=== PATIENT | male | born 1965 | race Caucasian/White ===

== ENCOUNTER 2021-09-16 05:15 | Day surgery (SDC) | payer BC ==
[~2021-09-16] VITALS: Ht 177.8 cm; Wt 93.2 kg
[~2021-09-16 05:15] MED LIST: ASPIRIN E.C. 8181 MG PO; PRINIVIL20 MG PO; TOPROL XL 25MG25 MG PO
[2021-09-16] MEDS ORDERED: HYZAAR 25 MG-101 TAB PO (07:45)
[2021-09-16 08:55] VITALS: BP 113/71; PULSE 77
--- NOTE | 2021-09-16 08:55 | NUR ---
Patient returns to room 8 per cart from surgery accompanied by Roxana GERONIMO and Saroj Salmeron CRNA and patient arouses to verbal stimuli. IV fluids infusing and site is free of redness. Call light in reach and siderails up x2. Given water to sip on and allowed to rest. Exofin skin glue on upper back with wound edges well approximated and no drainage noted.
[2021-09-16] MEDS ORDERED: NORCO 325 MG-51 TAB PO (09:06)
[2021-09-16] MEDS ORDERED: MOTRIN 600600 MG/TAB PO (09:06)
[2021-09-16 09:10] VITALS: BP 116/76; PULSE 68
--- NOTE | 2021-09-16 09:10 | NUR ---
Resting when not disturbed and allowed to rest. Has tolerated water.
[2021-09-16 09:25] VITALS: BP 114/76; PULSE 67
--- NOTE | 2021-09-16 09:25 | NUR ---
Drinking orange juice. Denies pain or nausea.
[2021-09-16 09:40] VITALS: BP 117/71; PULSE 69
--- NOTE | 2021-09-16 09:40 | NUR ---
Continues to rest offers no complaints or pain or nausea.
--- NOTE | 2021-09-16 09:50 | NUR ---
IV to INT. Patient sitting up on the edge of bed. Scrub removed from the back that was used in the operating room for prep. Wound edges well approximated. No drainage noted.
--- NOTE | 2021-09-16 10:23 | NUR ---
Medicated with Motrin and Tylenol in preparation for discharge. Patient states that he will be taking an Uber home. Scripts were sent to [facility] and they will be delivered to the patients home. Patient is aware of this.
--- NOTE | 2021-09-16 10:30 | NUR ---
IV discontinued and site is free of redness or swelling. Patient is dressed.
--- NOTE | 2021-09-16 10:55 | NUR ---
Dismissal instructions given and voices understanding of this.
--- NOTE | 2021-09-16 11:13 | NUR ---
Patient taken to the front door entrance per wheelchair and patient notified [employer] for transportation home. [employer] here and dismissed to home with dismissal instructions in hand.
[2021-09-16 13:42] VITALS: BP 141/88; PULSE 73; TEMP 97.5
== END 2021-09-16 11:13 | disposition home or self-care (01) ==
LOC: SDCO 05:15
DX: D17.1 Benign lipomatous neoplasm of skin and subcutaneous tissue of trunk (principal)
CPT/HCPCS: J0690; J2704; J3010